=== PATIENT | male | born 1995 | race Caucasian/White ===

== ENCOUNTER 2020-05-22 00:43 | Inpatient (IN) | payer OTHER ==
[~2020-05-22] VITALS: Ht 193 cm; Wt 100.8 kg
[2020-05-22] VITALS (13 sets, daily range): BP systolic 103–148; BP diastolic 24–81
[2020-05-22] MEDS: IV NORMAL SALINE 1000ML BAG 1,000 ML IV SCH ×3 (01:51→17:54)
[2020-05-22] MEDS: ONDANSETRON PF 4 MG/2 ML VIAL. IV PRN ×3 (01:54→23:09)
[2020-05-22] MEDS: MORPHINE SULFATE 4 MG/ML VIAL. IV PRN ×5 (01:55→23:09)
--- NOTE | 2020-05-22 04:01 | NUR ---
Direct Admit from [facility]. Patient arrived to unit at approx 0040 accompanied by EMS. Complaints of 7/10 abd pain with some nausea. No vomiting. Patient is a student at [employer] and reports traveling to [place] for a swim meet states "the swim meet was well organized and social distancing was followed". Pt states that they are frequently tested for COVID for practices, no signs and symptoms noted. VS stable, Assessment complete. Reminded patient to call for assistance before ambulating. Call light in reach, bed in low locked position, will continue to monitor.
--- NOTE | 2020-05-22 07:19 | HP ---
ADMIT DATE: 05/22/2020 HISTORY OF PRESENT ILLNESS: The patient is a 24-year-old male patient originally from [facility], who is studying for [employer] here and who apparently started complaining of abdominal pain that started last Wednesday after drinking alcohol in [place] and excessive amount of [employer], reported generalized abdominal pain over the last 48 hours migrated towards his right lower quadrant area. However, he denied any fever. He has no known COVID-19 contacts and no other concerning symptoms, but does admit that the pain is now mostly in his right lower quadrant. He was evaluated in the Emergency Room of [facility]. His lab works were essentially unremarkable; however, CT scan of the abdomen and pelvis showed the patient has finding consistent with acute appendicitis with no evidence of perforation or adjacent abscess and therefore, he was transferred to [facility] to consult the surgical team for definitive surgical treatment. He was kept n.p.o., started on IV fluid and IV pain medication, antiemetic. PAST MEDICAL HISTORY: Unremarkable except for styes in both eyes. PAST SURGICAL HISTORY: Remarkable for surgery on his right shoulder. FAMILY HISTORY: Unremarkable. SOCIAL HISTORY: He is currently a student. He does not smoke. He drinks alcohol occasionally. Does not use any drugs. ALLERGIES: He has no known drug allergies. MEDICATIONS: He is currently on no medication by prescription or [id number]. REVIEW OF SYSTEMS: As per history of present illness. PHYSICAL EXAMINATION: GENERAL: On arrival to the Emergency Room, he looked well and was clearly in no apparent respiratory distress. No pallor, jaundice, cyanosis or thyromegaly. No jugular venous distention. No limb edema. VITAL SIGNS: His heart rate was 74, blood pressure was 136/73, temperature 98.7, respiratory rate was 16, and oxygen saturation was 97%. HEAD, EYES, EARS, NOSE AND THROAT: Normocephalic, atraumatic. NECK: Supple. CARDIAC: Normal first and second heart sounds. No gallop or murmur. CHEST: Shows central trachea, equal bilateral expansion, air entry vesicular sounds. No crepitation or rhonchi. ABDOMEN: Scaphoid, generally soft except marked tenderness in the right lower quadrant. NEUROLOGIC: He was grossly intact. LABORATORY DATA: Showed a white cell count of 8800, hemoglobin 15.5, hematocrit was 46.6, MCV 89 and platelet count 228,000. His chemistry showed a serum sodium 139, potassium 4, chloride 101, bicarbonate 27, anion gap of 11, BUN 13, creatinine 1.2, estimated GFR was 75 mL per minute. His glucose was 88, calcium was 10.5. Total bilirubin is 1.2. AST, ALT, alkaline phosphatase were normal. Total protein 8.4, albumin was 4.5. The CT scan of the abdomen and pelvis showed the heart size is normal, no pericardial effusion. Visualized lung bases are clear, no pleural effusion. Liver, spleen, pancreas, gallbladder and adrenals are unremarkable. No renal or ureteral calculi. Kidneys demonstrate symmetric enhancement. No hydronephrosis or perinephric stranding. Bladder is partially distended, is not well evaluated. Prostate is not enlarged, scattered diverticulosis noted in the sigmoid colon without evidence of acute diverticulitis. Remainder of the large and small bowel are unremarkable. Appendix is dilated with mild adjacent fat stranding. Appendicolith is noted at the base of the appendix. Abdominal aorta has a normal course and caliber. Abdominal vasculature is patent. No enlarged intraabdominal lymph nodes are identified. No suspicious osseous lesion or acute fracture. IMPRESSION: Finding of acute appendicitis with no evidence of perforation or adjacent abscess. PLAN: To keep the patient n.p.o., continue with IV fluid, IV pain medication, antiemetic and consult the surgical team for definitive surgical treatment. MARNIE DIAZ MD DR: ZIGGY/giovani JOB#: [id number] / [id number]
[2020-05-22] MEDS ORDERED: BUPIVACAINE-EPI 0.5%-1:200000 MPF 30 ML VIAL. INJ ONE (07:30)
[2020-05-22] MEDS: cefTRIAXone IV Push 1 GM VIAL. IVP SCH (08:39)
[2020-05-22 09:12] LABS: BASO % 1 % (0-3); EOS # 0.1 x10^3/uL (0.0-0.7); EOS % 1 % (0-3); HEMATOCRIT 40.4 % (39.0-53.0); HEMOGLOBIN 14.2 g/dL (13.0-17.5); LYMPH # 2.5 x10^3/uL (1.0-4.8); LYMPH % 42 % (24-48); MEAN CORPUSCULAR HEMOGLOBIN 30 pg (25-35); MEAN CORPUSCULAR HGB CONC 35 g/dL (31-37); MEAN CORPUSCULAR VOLUME 85 fL (79-100); MONO # 0.6 x10^3/uL (0.0-1.1); MONO % 10 % (0-9); NEUT # 2.8 x10^3/uL (1.8-7.7); NEUT % 47 % (31-73); PLATELET COUNT 190 x10^3/uL (140-400); RED BLOOD COUNT 4.77 x10^6/uL (4.30-5.70); RED CELL DISTRIBUTION WIDTH 12.4 % (11.5-14.5)
[2020-05-22 09:28] LABS: ALBUMIN 3.7 g/dL (3.4-5.0); ALBUMIN/GLOBULIN RATIO 1.2 (1.0-1.7); CREATININE 1.1 mg/dL (0.7-1.3); POTASSIUM 4.1 mmol/L (3.5-5.1); TOTAL BILIRUBIN 1.6 mg/dL (0.2-1.0); TOTAL PROTEIN 6.9 g/dL (6.4-8.2)
--- NOTE | 2020-05-22 13:24 | NUR ---
SS following for discharge planning. SS reviewed pt chart and discussed with pt RN. Pt is from home and is currently on room air. Self pay. COVID19 negative. Pt on IV Rocephin and IV Flagyl. Pt having surgery today. SS will continue to follow for discharge planning.
[2020-05-22] MEDS ORDERED: SEVOFLURANE 61 TO 120 MINUTES. IH ONE (15:58)
[2020-05-22] MEDS ORDERED: GLYCOPYRROLATE 1 MG/5 ML VIAL. ONE (15:58)
[2020-05-22] MEDS ORDERED: SUCCINYLCHOLINE 200 MG/10 ML VIAL. ONE (15:59)
[2020-05-22] MEDS ORDERED: MIDAZOLAM HCL/PF 2 MG/2 ML VIAL. ONE (15:59)
[2020-05-22] MEDS ORDERED: fentaNYL PF VIAL 100 MCG/2 ML VIAL ONE (15:59)
[2020-05-22] MEDS ORDERED: ROCURONIUM 50 MG/5 ML VIAL. ONE (15:59)
[2020-05-22] MEDS ORDERED: KETOROLAC 30 MG/ML VIAL. ONE ×2 (15:59)
[2020-05-22] MEDS ORDERED: NEOSTIGMINE METHYLSULFATE 5 MG/5 ML SYRINGE. ONE (15:59)
[2020-05-22] MEDS ORDERED: DEXAMETHASONE SOD PHOS 4 MG/ML VIAL ONE (16:00)
[2020-05-22] MEDS ORDERED: PROPOFOL 10 MG/ML (20ML) VIAL. IV ONE (16:00)
[2020-05-22] MEDS ORDERED: LIDOCAINE 2% PF 5 ML VIAL. ONE (16:00)
[2020-05-22] MEDS ORDERED: ONDANSETRON PF 4 MG/2 ML VIAL. ONE (16:00)
--- NOTE | 2020-05-22 16:06 | PDOC2 ---
CONSULT Date of Consult Date of Consult DATE: 05/22/20 TIME: 16:00 Reason for Consult Reason for Consult: Abdominal pain Referring Physician Referring Physician: Eben Identification/Chief Complaint Chief Complaint Abdominal pain Source Source: Chart review, Patient History of Present Illness Reason for Visit: 24-year-old male with 48-hour history of right lower quadrant abdominal pain nausea no vomiting. Came to [facility] emergency department for further evaluation CT scan was done at that time which shows a dilated inflamed appendix consistent with acute appendicitis no evidence of perforation or phlegmon or abscess Past Medical History Cardiovascular: No pertinent hx Pulmonary: No pertinent hx GI: No pertinent hx Heme/Onc: No pertinent hx Hepatobiliary: No pertinent hx Psych: No pertinent hx Rheumatologic: No pertinent hx Infectious disease: No pertinent hx ENT: No pertinent hx Renal/: No pertinent hx Endocrine: No pertinent hx Dermatology: No pertinent hx Past Surgical History Past Surgical History: Other (Right shoulder surgery) Family History Family History: No Significant Social History No ALCOHOL: social Drugs: None Lives: Alone Current Medications Current Medications Current Medications Sodium Chloride 1,000 ml @ 100 mls/hr Q10H IV Last administered on 05/22/20at 11:29; Start 05/22/20 at 01:45 Ondansetron HCl (Zofran) 4 mg PRN Q4HRS PRN IV NAUSEA/VOMITING Last administered on 05/22/20at 01:54; Start 05/22/20 at 01:45 Morphine Sulfate (Morphine Sulfate) 4 mg PRN Q4HRS PRN IV PAIN Last administered on 05/22/20at 13:18; Start 05/22/20 at 01:45 Ceftriaxone Sodium (Rocephin) 1 gm Q24H IVP Last administered on 05/22/20at 08:39; Start 05/22/20 at 07:00 Metronidazole 100 ml @ 100 mls/hr Q12HR IV Last administered on 05/22/20at 11:29; Start 05/22/20 at 09:00 Bupivacaine HCl/ Epinephrine Bitart (Sensorcain-Epi 0.5%-1:115491 Mpf) 30 ml 1X ONCE INJ ; Start 05/22/20 at 07:30; Stop 05/22/20 at 07:31; Status DC Glycopyrrolate (Robinul) 1 mg STK-MED ONCE .ROUTE ; Start 05/22/20 at 15:58; Stop 05/22/20 at 15:59; Status DC Sevoflurane (Ultane) 60 ml STK-MED ONCE IH ; Start 05/22/20 at 15:58; Stop 05/22/20 at 15:59; Status DC Succinylcholine Chloride (Anectine) 200 mg STK-MED ONCE .ROUTE ; Start 05/22/20 at 15:59; Stop 05/22/20 at 15:59; Status DC Rocuronium [place] (Zemuron) 50 mg STK-MED ONCE .ROUTE ; Start 05/22/20 at 15:59; Stop 05/22/20 at 15:59; Status DC Fentanyl Citrate (Fentanyl 2ml Vial) 100 mcg STK-MED ONCE .ROUTE ; Start at 15:59; Stop 05/22/20 at 15:59; Status DC Neostigmine [place] (Neostigmine Methylsulfate) 5 mg STK-MED ONCE .ROUTE ; Start 05/22/20 at 15:59; Stop 05/22/20 at 15:59; Status DC Midazolam HCl (Versed) 2 mg STK-MED ONCE .ROUTE ; Start 05/22/20 at 15:59; Stop 05/22/20 at 15:59; Status DC Ketorolac Tromethamine (Toradol 30mg Vial) 30 mg STK-MED ONCE .ROUTE ; Start 05/22/20 at 15:59; Stop 05/22/20 at 16:00; Status DC Ketorolac Tromethamine (Toradol 30mg Vial) 30 mg STK-MED ONCE .ROUTE ; Start 05/22/20 at 15:59; Stop 05/22/20 at 16:00; Status DC Lidocaine HCl (Lidocaine Pf 2% Vial) 5 ml STK-MED ONCE .ROUTE ; Start 05/22/20 at 16:00; Stop 05/22/20 at 16:00; Status DC Propofol (Diprivan) 200 mg STK-MED ONCE IV ; Start 05/22/20 at 16:00; Stop 05/22/20 at 16:00; Status DC Dexamethasone Sodium Phosphate (Decadron) 4 mg STK-MED ONCE .ROUTE ; Start 05/22/20 at 16:00; Stop 05/22/20 at 16:00; Status DC Ondansetron HCl (Zofran) 4 mg STK-MED ONCE .ROUTE ; Start 05/22/20 at 16:00; Stop 05/22/20 at 16:00; Status DC Active Scripts Active Reported No Known Medications Prior To Admisstion (Info) Each 1 Each 1X Allergies Allergies: Coded Allergies: No Known Drug Allergies (Unverified , 05/22/20) ROS Gastrointestinal: Yes Nausea, Yes Abdominal Pain Physical Exam General: Alert, Oriented X3, Cooperative, mild distress HEENT: Other (Right eye inflammation of the lid) Lungs: Clear to auscultation, Normal air movement Heart: Regular rate, No murmurs Abdomen: Normal bowel sounds, Soft, Other (Tender palpation right lower quadrant) Extremities: No edema Skin: No significant lesion Neuro: Normal speech Psych/Mental Status: Mental status NL Vitals VITALS Vital Signs Date Time Temp Pulse Resp B/P (MAP) Pulse Ox O2 Delivery O2 Flow Rate FiO2 05/22/20 15:55 98.0 51 16 121/57 96 Room Air 98.0 Labs Labs Laboratory Tests Test 05/22/20 06:30 05/22/20 08:55 SARS-CoV-2 Antigen (Rapid) Negative (NEGATIVE) White Blood Count 6.0 x10^3/uL (4.0-11.0) Red Blood Count 4.77 x10^6/uL (4.30-5.70) Hemoglobin 14.2 g/dL (13.0-17.5) Hematocrit 40.4 % (39.0-53.0) Mean Corpuscular Volume 85 fL (79-100) Mean Corpuscular Hemoglobin 30 pg (25-35) Mean Corpuscular Hemoglobin Concent 35 g/dL (31-37) Red Cell Distribution Width 12.4 % (11.5-14.5) Platelet Count 190 x10^3/uL (140-400) Neutrophils (%) (Auto) 47 % (31-73) Lymphocytes (%) (Auto) 42 % (24-48) Monocytes (%) (Auto) 10 % (0-9) Eosinophils (%) (Auto) 1 % (0-3) Basophils (%) (Auto) 1 % (0-3) Neutrophils # (Auto) 2.8 x10^3/uL (1.8-7.7) Lymphocytes # (Auto) 2.5 x10^3/uL (1.0-4.8) Monocytes # (Auto) 0.6 x10^3/uL (0.0-1.1) Eosinophils # (Auto) 0.1 x10^3/uL (0.0-0.7) Basophils # (Auto) 0.0 x10^3/uL (0.0-0.2) Sodium Level 141 mmol/L (136-145) Potassium Level 4.1 mmol/L (3.5-5.1) Chloride Level 103 mmol/L (98-107) Carbon Dioxide Level 28 mmol/L (21-32) Anion Gap 10 (6-14) Blood Urea Nitrogen 15 mg/dL (8-26) Creatinine 1.1 mg/dL (0.7-1.3) Estimated GFR (Cockcroft-Gault) 83.0 BUN/Creatinine Ratio 14 (6-20) Glucose Level 81 mg/dL (70-99) Calcium Level 9.0 mg/dL (8.5-10.1) Total Bilirubin 1.6 mg/dL (0.2-1.0) Aspartate Amino Transf (AST/SGOT) 15 U/L (15-37) Alanine Aminotransferase (ALT/SGPT) 28 U/L (16-63) Alkaline Phosphatase 70 U/L (46-116) Total Protein 6.9 g/dL (6.4-8.2) Albumin 3.7 g/dL (3.4-5.0) Albumin/Globulin Ratio 1.2 (1.0-1.7) Laboratory Tests Test 05/22/20 06:30 05/22/20 08:55 SARS-CoV-2 Antigen (Rapid) Negative (NEGATIVE) White Blood Count 6.0 x10^3/uL (4.0-11.0) Red Blood Count 4.77 x10^6/uL (4.30-5.70) Hemoglobin 14.2 g/dL (13.0-17.5) Hematocrit 40.4 % (39.0-53.0) Mean Corpuscular Volume 85 fL (79-100) Mean Corpuscular Hemoglobin 30 pg (25-35) Mean Corpuscular Hemoglobin Concent 35 g/dL (31-37) Red Cell Distribution Width 12.4 % (11.5-14.5) Platelet Count 190 x10^3/uL (140-400) Neutrophils (%) (Auto) 47 % (31-73) Lymphocytes (%) (Auto) 42 % (24-48) Monocytes (%) (Auto) 10 % (0-9) Eosinophils (%) (Auto) 1 % (0-3) Basophils (%) (Auto) 1 % (0-3) Neutrophils # (Auto) 2.8 x10^3/uL (1.8-7.7) Lymphocytes # (Auto) 2.5 x10^3/uL (1.0-4.8) Monocytes # (Auto) 0.6 x10^3/uL (0.0-1.1) Eosinophils # (Auto) 0.1 x10^3/uL (0.0-0.7) Basophils # (Auto) 0.0 x10^3/uL (0.0-0.2) Sodium Level 141 mmol/L (136-145) Potassium Level 4.1 mmol/L (3.5-5.1) Chloride Level 103 mmol/L (98-107) Carbon Dioxide Level 28 mmol/L (21-32) Anion Gap 10 (6-14) Blood Urea Nitrogen 15 mg/dL (8-26) Creatinine 1.1 mg/dL (0.7-1.3) Estimated GFR (Cockcroft-Gault) 83.0 BUN/Creatinine Ratio 14 (6-20) Glucose Level 81 mg/dL (70-99) Calcium Level 9.0 mg/dL (8.5-10.1) Total Bilirubin 1.6 mg/dL (0.2-1.0) Aspartate Amino Transf (AST/SGOT) 15 U/L (15-37) Alanine Aminotransferase (ALT/SGPT) 28 U/L (16-63) Alkaline Phosphatase 70 U/L (46-116) Total Protein 6.9 g/dL (6.4-8.2) Albumin 3.7 g/dL (3.4-5.0) Albumin/Globulin Ratio 1.2 (1.0-1.7) Images Images As in the history of present illness Assessment/Plan Assessment/Plan Acute appendicitis plan laparoscopic appendectomy SHERRI LOWE MD May 22, 2020 16:06
[2020-05-22] MEDS ORDERED: oxyCODONE/APAP 5/325 1 TAB TABLET PO PRN (17:30)
--- NOTE | 2020-05-22 17:30 | PDOC4 ---
Operative Note Operative Note Preoperative Diagnosis: Acute Appendicitis Postoperative Diagnosis: Same Procedure: Laparoscopic appendectomy Surgeon: Ye Legal Administrative Secretary: Aristides Anderson Anesthesia: Gen. EBL: 10 mL Specimen: Appendix to pathology Drains: None Complications: None Indication: The patient is a 24-year-old male who reported to the emergency department with abdominal pain. The evaluation is consistent with acute appendicitis. The patient was offered surgical treatment with a laparoscopic appendectomy. The risks of surgery were discussed which include bleeding, infection, visceral injury, pain, anesthetic risk, potential need for additional surgery or procedure. The patient understands and would like to proceed. Description: The patient was taken to the operating room and placed supine on the operating table. Gen. anesthesia was performed. The abdomen was prepped with ChloraPrep and draped in a standard surgical manner. A supraumbilical incision was made through which a veress needle was inserted and a pneumoperitoneum was created. A visualized 5 mm trocar was inserted and the laparoscope was introduced. In the left lower quadrant a 5 mm trocar was inserted. In the suprapubic region a 12 mm trocar was inserted. The appendix was identified and appeared inflamed consistent with acute appendicitis. There was no clear evidence of perforation or periappendiceal abscess. The mesoappendix was bluntly from the appendix. The mesoappendix was controlled using several clips and it was divided. The appendix was then amputated off the cecum using an Endo CHAD 45 stapling device. The appendix was then placed in an endoscopic bag and extracted at the suprapubic incision site. The fascia there was closed with 0 Vicryl and infiltrated with half percent Marcaine with epinephrine. The RLQ was visualized and the staple line appeared well intact and hemostasis was good. No other abnormalities were identified grossly. The remaining ports were removed and the pneumoperitoneum was relieved. The skin at all incision sites was closed with 4-0 Monocryl. Steri-Strips and dressings were applied. The patient tolerated the procedure well and was sent to the recovery room in stable condition. At the end of the case all counts were correct. JOAN RODRIGUEZ MD May 22, 2020 17:30
[2020-05-22] MEDS ORDERED: fentaNYL PF VIAL 100 MCG/2 ML VIAL IV PRN (17:45)
[2020-05-22] MEDS ORDERED: PROCHLORPERAZINE 10 MG/2 ML VIAL. IV PRN (17:45)
[2020-05-22] MEDS ORDERED: MORPHINE SULFATE 2 MG/ML VIAL. IV PRN (17:45)
[2020-05-22] MEDS ORDERED: HYDROmorphone 2 MG/ML VIAL IV PRN (17:45)
[2020-05-22] MEDS: fentaNYL PF VIAL 100 MCG/2 ML VIAL IV PRN ×2 (17:53→18:00)
[2020-05-23] MEDS: oxyCODONE/APAP 5/325 1 TAB TABLET PO PRN ×5 (02:06→22:29)
[2020-05-23 02:50] VITALS: BP 123/47
--- NOTE | 2020-05-23 05:37 | NUR ---
no urine output since pt has been back from surgery. Bladder scan = 750. Spoke with Dr. Belcher at 0500, ordered to straight cath if patient is unable to urinate. Patient states that it perry when trying to urinate but was able to have 600 out. Will continue to monitor. Addendum: 05/23/20 at 0540 by MIN TORIBIO RN RN no intervention needed at this time
[2020-05-23] MEDS: cefTRIAXone IV Push 1 GM VIAL. IVP SCH (06:42)
[2020-05-23] MEDS: IV NORMAL SALINE 1000ML BAG 1,000 ML IV SCH ×2 (06:59→18:21)
[2020-05-23 07:00] VITALS: BP 130/60
[2020-05-23] MEDS: ONDANSETRON PF 4 MG/2 ML VIAL. IV PRN (10:10)
[2020-05-23] MEDS: MORPHINE SULFATE 4 MG/ML VIAL. IV PRN ×3 (10:17→20:46)
[2020-05-23 11:00] VITALS: BP 116/55
--- NOTE | 2020-05-23 11:14 | PN ---
DATE: 05/23/2020 SUBJECTIVE: The patient is resting, slightly propped up in bed, continued to complain of severe pain in his right flank area that comes and goes. The pain is severe. However, by the time I saw him, he had received already pain medication. Did have some nausea, but no vomiting. He underwent laparoscopic appendectomy successfully yesterday and has been tolerating his diet. PHYSICAL EXAMINATION: GENERAL: When I saw him sat this morning, he looked well and was clearly in no apparent respiratory distress. No pallor, jaundice, cyanosis or thyromegaly. No jugular venous distention or limb edema. VITAL SIGNS: His heart rate was 56, blood pressure was 130/60, temperature was 98, respiratory rate was 19 and oxygen saturation was 99% on room air. HEAD, EYES, EARS, NOSE AND THROAT: Showed normocephalic, atraumatic. NECK: Supple. HEART: Showed normal first and second heart sounds. No gallop or murmur. CHEST: Clear to auscultation. No crepitation or rhonchi. ABDOMEN: Distended, soft, nontender. No guarding or rigidity. No organomegaly. Bowel sounds normal. NEUROLOGIC: He is awake, alert, responding appropriately. All cranial nerves are intact. He moves extremities without difficulty. LABORATORY DATA: His lab work this morning are still pending at the time of this dictation. His lab work yesterday showed his bilirubin was slightly elevated; however, his AST, ALT, alkaline phosphatase were normal, which could be because he was fasting as a form of Gilbert's syndrome. PLAN: My plan is to repeat all his lab works again this morning and we will order a repeat CT scan or ultrasound to elucidate this further, although the CT scan of the abdomen and pelvis done at [facility] did not show any evidence of acute cholecystitis or cholelithiasis. No evidence of nephrolithiasis. MARNIE DIAZ MD DR: ZIGGY/giovani JOB#: [id number] / [id number]
--- NOTE | 2020-05-23 13:01 | NUR ---
SS following up with discharge planning. SS reviewed pt chart and discussed with pt RN. Pt is currently on room air. Pt had surgery on 05/22/2020. Pt on IV Rocephin. Self pay. Discharge plan is to home when medically stable. SS will continue to follow for discharge planning.
[2020-05-23 13:12] LABS: CALCIUM 8.7 mg/dL (8.5-10.1); GFR 92.6
[2020-05-23 13:18] LABS: ALBUMIN 3.4 g/dL (3.4-5.0); ALBUMIN/GLOBULIN RATIO 1.2 (1.0-1.7); TOTAL BILIRUBIN 0.5 mg/dL (0.2-1.0); TOTAL PROTEIN 6.3 g/dL (6.4-8.2)
--- NOTE | 2020-05-23 14:37 | PDOC ---
LUISITO LIZ [employer]LECT[employer]INUITY TESTER 05/23/20 1437: SURGICAL PROGRESS NOTE DATE: 05/23/20 TIME: 14:35 Subjective low back pain Right flank area some improvement after surgery no n/v Vital Signs Vital Signs Date Time Temp Pulse Resp B/P (MAP) Pulse Ox O2 Delivery O2 Flow Rate FiO2 05/23/20 12:28 16 Room Air 05/23/20 11:00 98.0 70 116/55 (75) 98 98.0 05/22/20 18:05 10 I&O Intake and Output 05/23/20 07:00 Intake Total 1620 ml Output Total 1710 ml Balance -90 ml Intake Oral 420 ml IV Total 1200 ml Output Urine Total 1700 ml Estimated Blood Loss 10 ml General: Alert, Oriented X3, Cooperative Abdomen: Soft, Other (lap sites dry) Labs Laboratory Tests Test 05/22/20 06:30 05/22/20 08:55 05/23/20 12:25 SARS-CoV-2 Antigen (Rapid) Negative (NEGATIVE) White Blood Count 6.0 x10^3/uL (4.0-11.0) Red Blood Count 4.77 x10^6/uL (4.30-5.70) Hemoglobin 14.2 g/dL (13.0-17.5) Hematocrit 40.4 % (39.0-53.0) Mean Corpuscular Volume 85 fL (79-100) Mean Corpuscular Hemoglobin 30 pg (25-35) Mean Corpuscular Hemoglobin Concent 35 g/dL (31-37) Red Cell Distribution Width 12.4 % (11.5-14.5) Platelet Count 190 x10^3/uL (140-400) Neutrophils (%) (Auto) 47 % (31-73) Lymphocytes (%) (Auto) 42 % (24-48) Monocytes (%) (Auto) 10 % (0-9) Eosinophils (%) (Auto) 1 % (0-3) Basophils (%) (Auto) 1 % (0-3) Neutrophils # (Auto) 2.8 x10^3/uL (1.8-7.7) Lymphocytes # (Auto) 2.5 x10^3/uL (1.0-4.8) Monocytes # (Auto) 0.6 x10^3/uL (0.0-1.1) Eosinophils # (Auto) 0.1 x10^3/uL (0.0-0.7) Basophils # (Auto) 0.0 x10^3/uL (0.0-0.2) Sodium Level 141 mmol/L (136-145) 140 mmol/L (136-145) Potassium Level 4.1 mmol/L (3.5-5.1) 4.0 mmol/L (3.5-5.1) Chloride Level 103 mmol/L (98-107) 104 mmol/L (98-107) Carbon Dioxide Level 28 mmol/L (21-32) 25 mmol/L (21-32) Anion Gap 10 (6-14) 11 (6-14) Blood Urea Nitrogen 15 mg/dL (8-26) 17 mg/dL (8-26) Creatinine 1.1 mg/dL (0.7-1.3) 1.0 mg/dL (0.7-1.3) Estimated GFR (Cockcroft-Gault) 83.0 92.6 BUN/Creatinine Ratio 14 (6-20) 17 (6-20) Glucose Level 81 mg/dL (70-99) 92 mg/dL (70-99) Calcium Level 9.0 mg/dL (8.5-10.1) 8.7 mg/dL (8.5-10.1) Total Bilirubin 1.6 mg/dL (0.2-1.0) 0.5 mg/dL (0.2-1.0) Aspartate Amino Transf (AST/SGOT) 15 U/L (15-37) 19 U/L (15-37) Alanine Aminotransferase (ALT/SGPT) 28 U/L (16-63) 24 U/L (16-63) Alkaline Phosphatase 70 U/L (46-116) 64 U/L (46-116) Total Protein 6.9 g/dL (6.4-8.2) 6.3 g/dL (6.4-8.2) Albumin 3.7 g/dL (3.4-5.0) 3.4 g/dL (3.4-5.0) Albumin/Globulin Ratio 1.2 (1.0-1.7) 1.2 (1.0-1.7) Laboratory Tests Test 05/23/20 12:25 Sodium Level 140 mmol/L (136-145) Potassium Level 4.0 mmol/L (3.5-5.1) Chloride Level 104 mmol/L (98-107) Carbon Dioxide Level 25 mmol/L (21-32) Anion Gap 11 (6-14) Blood Urea Nitrogen 17 mg/dL (8-26) Creatinine 1.0 mg/dL (0.7-1.3) Estimated GFR (Cockcroft-Gault) 92.6 BUN/Creatinine Ratio 17 (6-20) Glucose Level 92 mg/dL (70-99) Calcium Level 8.7 mg/dL (8.5-10.1) Total Bilirubin 0.5 mg/dL (0.2-1.0) Aspartate Amino Transf (AST/SGOT) 19 U/L (15-37) Alanine Aminotransferase (ALT/SGPT) 24 U/L (16-63) Alkaline Phosphatase 64 U/L (46-116) Total Protein 6.3 g/dL (6.4-8.2) Albumin 3.4 g/dL (3.4-5.0) Albumin/Globulin Ratio 1.2 (1.0-1.7) Assessment/Plan s/p appy stable surgically noted plans per Primary no additional surgical plans Justicifation of Admission Dx: Justifications for Admission: Justification of Admission Dx: Yes Comments: appendicitis JOAN RODRIGUEZ MD 05/24/20 0709: SURGICAL PROGRESS NOTE Assessment/Plan agree with above LUISITO LIZ [employer]LECT[employer] TE[employer] May 23, 2020 14:37 JOAN RODRIGUEZ MD May 24, 2020 07:09
[2020-05-23 15:00] VITALS: BP 122/55
[2020-05-23 19:00] VITALS: BP 103/61
[2020-05-23] MEDS: LACTOBACILLUS RHAMNOSUS GG 1 CAPSULE. PO SCH (20:42)
[2020-05-23 22:39] VITALS: BP 108/56
[2020-05-24 02:34] VITALS: BP 118/49
[2020-05-24] MEDS: cefTRIAXone IV Push 1 GM VIAL. IVP SCH (06:05)
[2020-05-24] MEDS: IV NORMAL SALINE 1000ML BAG 1,000 ML IV SCH (06:06)
[2020-05-24] MEDS: MORPHINE SULFATE 4 MG/ML VIAL. IV PRN (06:15)
[2020-05-24 07:00] VITALS: BP 125/56
[2020-05-24 07:00] LABS: HEMATOCRIT 38.5 % (39.0-53.0); HEMOGLOBIN 13.6 g/dL (13.0-17.5); RED BLOOD COUNT 4.6 x10^6/uL (4.30-5.70); RED CELL DISTRIBUTION WIDTH 12.4 % (11.5-14.5)
[2020-05-24] MEDS ORDERED: IOHEXOL 300 MG/ML 100ML VIAL. IV ONE (09:00)
[2020-05-24] MEDS ORDERED: CONTRAST GIVEN. MC PRN (09:00)
[2020-05-24] MEDS: LACTOBACILLUS RHAMNOSUS GG 1 CAPSULE. PO SCH (09:22)
[2020-05-24] MEDS: oxyCODONE/APAP 5/325 1 TAB TABLET PO PRN (09:22)
--- NOTE | 2020-05-24 09:57 | RAD ---
Exam: CT abdomen/pelvis with intravenous contrast Indication: Right flank pain, appendectomy postop 05/21/2020 Comparison: CT abdomen and pelvis 05/21/2020 Technique: Helical CT imaging performed of the abdomen and pelvis after the intravenous administration of 75 mL Omnipaque 300 intravenous contrast. Sagittal and coronal reformats were obtained. One or more of the following individualized dose reduction techniques were utilized for this examination: 1. Automated exposure control 2. Adjustment of the mA and/or kV according to patient size 3. Use of iterative reconstruction technique. Findings: Lower chest: Minimal left basilar atelectasis. Liver: The liver is normal in size. No focal lesion. Gallbladder/Biliary Tree: Normal. Pancreas: Normal. Spleen: Normal. Adrenal Glands: Normal. Kidneys/Ureters/Bladder: Kidneys and ureters are normal. Bladder is mildly distended. Reproductive Organs: Prostate gland is normal. Stomach, small bowel, and colon: There are new surgical changes of appendectomy. The stomach, small bowel, and colon are normal. Vasculature: Abdominal aorta and inferior vena cava are normal. Lymph Nodes: Prominent lymph nodes in the right lower quadrant are likely reactive. Peritoneum and retroperitoneum: Scattered pneumoperitoneum is likely postoperative. There is a small amount of fluid at the base of the cecum measuring 1.6 x 1.8 cm and small amount of fluid posterior to the bladder measuring 4.3 x 1.2 cm without discrete wall or rim enhancement. No well-formed or drainable abscess. Bones: No acute osseous abnormality. Miscellaneous: Scattered gas in the abdominal wall related to appendectomy. Impression: New surgical changes of appendectomy. Small amount of pneumoperitoneum and small amount of fluid at the base of the cecum and posterior to the bladder is likely postoperative. There is no drainable abscess at this time. Electronically signed by: Ai Stevens MD (05/24/2020 9:54 AM) [id number]
[2020-05-24 11:00] VITALS: BP 113/55
--- NOTE | 2020-05-24 11:37 | NUR ---
SS following up with discharge planning. SS reviewed pt chart and discussed with pt RN. Pt is currently on room air. Pt on IV Rocephin. Pt had CT of abdomen this morning. Awaiting surgery to sign off at this time. Possible discharge to home later today. SS will continue to follow for discharge planning.
--- NOTE | 2020-05-24 12:29 | PDOC ---
SURGICAL PROGRESS NOTE DATE: 05/24/20 TIME: 12:27 Subjective some improvement in pain still some burning with urination no n/v Vital Signs Vital Signs Date Time Temp Pulse Resp B/P (MAP) Pulse Ox O2 Delivery O2 Flow Rate FiO2 05/24/20 11:00 98.6 66 18 113/55 (74) 99 Room Air 98.6 05/23/20 18:15 10.0 I&O Intake and Output 05/24/20 07:00 Intake Total 1750 ml Output Total 1200 ml Balance 550 ml Intake Oral 650 ml IV Total 1100 ml Output Urine Total 1200 ml General: Alert, Oriented X3, Cooperative Abdomen: Soft, Other (lap dressings dry) Labs Laboratory Tests Test 05/23/20 12:25 05/24/20 06:40 Sodium Level 140 mmol/L (136-145) Potassium Level 4.0 mmol/L (3.5-5.1) Chloride Level 104 mmol/L (98-107) Carbon Dioxide Level 25 mmol/L (21-32) Anion Gap 11 (6-14) Blood Urea Nitrogen 17 mg/dL (8-26) Creatinine 1.0 mg/dL (0.7-1.3) Estimated GFR (Cockcroft-Gault) 92.6 BUN/Creatinine Ratio 17 (6-20) Glucose Level 92 mg/dL (70-99) Calcium Level 8.7 mg/dL (8.5-10.1) Total Bilirubin 0.5 mg/dL (0.2-1.0) Aspartate Amino Transf (AST/SGOT) 19 U/L (15-37) Alanine Aminotransferase (ALT/SGPT) 24 U/L (16-63) Alkaline Phosphatase 64 U/L (46-116) Total Protein 6.3 g/dL (6.4-8.2) Albumin 3.4 g/dL (3.4-5.0) Albumin/Globulin Ratio 1.2 (1.0-1.7) White Blood Count 5.0 x10^3/uL (4.0-11.0) Red Blood Count 4.60 x10^6/uL (4.30-5.70) Hemoglobin 13.6 g/dL (13.0-17.5) Hematocrit 38.5 % (39.0-53.0) Mean Corpuscular Volume 84 fL (79-100) Mean Corpuscular Hemoglobin 30 pg (25-35) Mean Corpuscular Hemoglobin Concent 35 g/dL (31-37) Red Cell Distribution Width 12.4 % (11.5-14.5) Platelet Count 194 x10^3/uL (140-400) Laboratory Tests Test 05/24/20 06:40 White Blood Count 5.0 x10^3/uL (4.0-11.0) Red Blood Count 4.60 x10^6/uL (4.30-5.70) Hemoglobin 13.6 g/dL (13.0-17.5) Hematocrit 38.5 % (39.0-53.0) Mean Corpuscular Volume 84 fL (79-100) Mean Corpuscular Hemoglobin 30 pg (25-35) Mean Corpuscular Hemoglobin Concent 35 g/dL (31-37) Red Cell Distribution Width 12.4 % (11.5-14.5) Platelet Count 194 x10^3/uL (140-400) Assessment/Plan s/p appy as per medicine Fu 2weeks Justicifation of Admission Dx: Justifications for Admission: Justification of Admission Dx: Yes LUISITO LIZ SEARCH STRATEGIST May 24, 2020 12:29
[2020-05-24] MEDS ORDERED: OXYC-325 PO (13:37)
[2020-05-24] MEDS ORDERED: CEFD300C PO (13:38)
[2020-05-24] MEDS ORDERED: METR250T PO (13:38)
--- NOTE | 2020-05-24 14:08 | NUR ---
Discharge Note: XUAN KRISHNAMURTHY [place] Discharge instructions and discharge home medications reviewed with Patient and a copy given. All questions have been answered and understanding verbalized. The following instructions and handouts were given: lap appy care after, Percocet, cefdinir, Flagyl Discontinued lines and drains: Peripheral IV intact. Patient discharged to Home or Self Care with Significant Other via Ambulated
[2020-05-25] MEDS ORDERED: DOCUSATE SODIUM 100 MG CAPSULE. PO SCH (09:00)
== END 2020-05-24 14:05 | disposition home or self-care (01) | DRG 343 ==
LOC: 2 NORTH 00:43
PROVIDERS: ADMIT Internal Medicine; ATTEND Internal Medicine
PROC: 0DTJ4ZZ Resection of Appendix, Percutaneous Endoscopic Approach (ICD-10-PCS; principal; 2020-05-22 14:30)
DX: K35.80 Unspecified acute appendicitis (principal); Z20.828 Contact with and (suspected) exposure to other viral communicable diseases
CPT/HCPCS: 36415; 74177; 80053; 85025; 85027; 87426; A7015; J0330; J0696; J1100; J1885; J2250; J2270; J2405; J2704; J2710; J3010; J3490; J7030; Q9967; G0378; U0003-CS

== ENCOUNTER 2020-06-07 01:16 | Emergency (ER) | payer OTHER ==
[~2020-06-07] VITALS: Ht 185.4 cm; Wt 98.6 kg
[~2020-06-07 01:16] MED LIST: CEFD300C PO; METR250T PO; OXYC-325 PO
--- NOTE | 2020-06-07 01:41 | PHYS DOC ---
Past Medical History Past Medical History: No Pertinent History Past Surgical History: Appendectomy Smoking Status: Never Smoker Drug Use: None General Adult EDM: Chief Complaint: POST-OP PROBLEM HPI: HPI: Patient is a 24 year old male who is approximately 2 weeks status post appendectomy presents with a chief complaint of diarrhea. Patient has had multiple loose stools over the last several days. Her last 4 days also started having a right-sided throbbing headache as well as some muscle cramps in the right leg greater than left. Patient denies any fever, cough, shortness of br eath. Patient states symptoms worse with eating is had couple episodes of vomiting. Patient really does not complain of abdominal pain. Review of Systems: Review of Systems: Constitutional: Denies fever or chills. [] Eyes: Denies change in visual acuity. [] HENT: Denies nasal congestion or sore throat. [] Respiratory: Denies cough or shortness of breath. [] Cardiovascular: Denies chest pain or edema. [] GI: Complains of nausea with 2 episodes of vomiting and diarrhea : Denies dysuria. [] Musculoskeletal: Complains of myalgias Integument: Denies rash. [] Neurologic: Denies headache, focal weakness or sensory changes. [] Endocrine: Denies polyuria or polydipsia. [] Lymphatic: Denies swollen glands. [] Psychiatric: Denies depression or anxiety. [] Heart Score: Risk Factors: Risk Factors: DM, Current or recent (<one month) smoker, HTN, HLP, family history of CAD, obesity. Risk Scores: Score 0 - 3: 2.5% MACE over next 6 weeks - Discharge Home Score 4 - 6: 20.3% MACE over next 6 weeks - Admit for Clinical Observation Score 7 - 10: 72.7% MACE over next 6 weeks - Early Invasive Strategies Current Medications: Current Medications Sodium Chloride 1,000 ml @ 1,000 mls/hr 1X ONCE IV Last administered on 06/07/20at 01:45; Start 06/07/20 at 02:00; Stop 06/07/20 at 02:59 Sodium Chloride 1,000 ml @ 1,000 mls/hr 1X ONCE IV Last administered on 06/07/20at 01:46; Start 06/07/20 at 02:00; Stop 06/07/20 at 02:59 Prochlorperazine Edisylate (Compazine) 10 mg 1X ONCE IV Last administered on 06/07/20at 01:45; Start 06/07/20 at 02:00; Stop 06/07/20 at 02:01; Status DC Active Scripts Active Flagyl (Metronidazole) 250 Mg Tablet 1 Tab PO TID 7 Days Cefdinir 300 Mg Capsule 1 Cap PO BID Percocet 5-325 mg Tablet (Oxycodone HCl/Acetaminophen) 1 Each Tablet 1 Tab PO QIDPRN PRN MDD 4 Tablet(s) 5 Days Allergies: Allergies: Allergies Coded Allergies Type Severity Reaction Last Updated Verified No Known Drug Allergies 05/22/20 No Physical Exam: PE: Constitutional: Well developed, well nourished, no acute distress, non-toxic appearance. [] HENT: Normocephalic, atraumatic, bilateral external ears normal, no trismus nose normal. [] Eyes: PERRLA, EOMI, conjunctiva normal, no discharge. [] Neck: Normal range of motion, no tenderness, supple, no stridor. [] No meningeal signs Cardiovascular:Heart rate regular rhythm, peripheral pulses are intact cap refill is brisk Lungs & Thorax: Bilateral breath sounds clear, no respiratory distress Abdomen: Surgical incisions are clean dry and intact without signs of infection. No dehiscence. Abdomen is soft and nontender without guarding or rebound Skin: Warm, dry, no erythema, no rash. [] Back: No tenderness, no CVA tenderness. [] Extremities: No tenderness, no cyanosis, no clubbing, ROM intact, no edema. [] Neurologic: Alert and oriented X 3, normal motor function, normal sensory function, no focal deficits noted. [] Psychologic: Affect normal, judgement normal, mood normal. [] Current Patient Data: Labs: Laboratory Tests Test 06/07/20 01:40 White Blood Count 6.9 x10^3/uL Red Blood Count 4.99 x10^6/uL Hemoglobin 14.7 g/dL Hematocrit 41.8 % Mean Corpuscular Volume 84 fL Mean Corpuscular Hemoglobin 29 pg Mean Corpuscular Hemoglobin Concent 35 g/dL Red Cell Distribution Width 12.2 % Platelet Count 251 x10^3/uL Neutrophils (%) (Auto) 61 % Lymphocytes (%) (Auto) 30 % Monocytes (%) (Auto) 8 % Eosinophils (%) (Auto) 0 % Basophils (%) (Auto) 1 % Neutrophils # (Auto) 4.2 x10^3/uL Lymphocytes # (Auto) 2.1 x10^3/uL Monocytes # (Auto) 0.5 x10^3/uL Eosinophils # (Auto) 0.0 x10^3/uL Basophils # (Auto) 0.0 x10^3/uL Sodium Level 140 mmol/L Potassium Level 4.1 mmol/L Chloride Level 101 mmol/L Carbon Dioxide Level 27 mmol/L Anion Gap 12 Blood Urea Nitrogen 19 mg/dL Creatinine 1.2 mg/dL Estimated GFR (Cockcroft-Gault) 75.0 BUN/Creatinine Ratio 16 Glucose Level 87 mg/dL Calcium Level 9.2 mg/dL Total Bilirubin 0.8 mg/dL Aspartate Amino Transf (AST/SGOT) 25 U/L Alanine Aminotransferase (ALT/SGPT) 47 U/L Alkaline Phosphatase 81 U/L Total Protein 7.1 g/dL Albumin 4.2 g/dL Albumin/Globulin Ratio 1.4 Lipase 122 U/L Current Medications Medications (Trade) Dose Ordered Sig/Dona Route PRN Reason Start Time Stop Time Status Last Admin Dose Admin Sodium Chloride 1,000 ml @ 1,000 mls/hr 1X ONCE IV 06/07/20 02:00 06/07/20 02:59 06/07/20 01:45 Sodium Chloride 1,000 ml @ 1,000 mls/hr 1X ONCE IV 06/07/20 02:00 06/07/20 02:59 06/07/20 01:46 Prochlorperazine Edisylate (Compazine) 10 mg 1X ONCE IV 06/07/20 02:00 06/07/20 02:01 DC 06/07/20 01:45 Vital Signs: Vital Signs Date Time Temp Pulse Resp B/P (MAP) Pulse Ox O2 Delivery O2 Flow Rate FiO2 06/07/20 01:28 98.6 75 22 140/62 (88) 100 Room Air 98.6 EKG: EKG: [] Radiology/Procedures: Radiology/Procedures: [] Course & Med Decision Making: Course & Med Decision Making Pertinent Labs and Imaging studies reviewed. (See chart for details) [] 24-year-old male with status post appendectomy 2 weeks ago presents with some diarrhea as well as nausea and a headache. Patient's abdominal exam is soft and nontender, doubt surgical emergency. Patient reassessed at 2:30 AM and feels much better. Patient has no meningeal signs and normal neurological exam, doubt meningitis. Most likely the patient is dehydrated from the diarrhea which was caused by the antibiotics from surgery and will just need aggressive hydration. Patient has seen his surgeon a couple days ago and will be instructed to follow back up with them. I do not think he has a surgical emergency at this time. Return precautions given. Bruce Disclaimer: Bruce Disclaimer: This electronic medical record was generated, in whole or in part, using a voice recognition dictation system. Departure Departure Impression: Primary Impression: Headache Additional Impressions: Diarrhea Dehydration Disposition: 01 DC HOME SELF CARE/HOMELESS Condition: STABLE Referrals: NO PCP (PCP) JOAN RODRIGUEZ MD 2-3 DAYS Patient Instructions: Dehydration, Adult, Diarrhea Additional Instructions: EMERGENCY DEPARTMENT GENERAL DISCHARGE INSTRUCTIONS THANK YOU for coming to [facility] Emergency Department (ED) today and trusting us with your care. We trust that you had a positive experience in our Emergency Department. If you wish to speak to the department Management you can contact the measurement department chief clerk at . YOUR FOLLOW UP INSTRUCTIONS ARE FOLLOWS: Do you have a private doctor? If you do not have a private doctor, please ask for a resource list of physicians or clinics that may be able to assist you with follow up care. The Emergency Physician has interpreted your x-rays. The X-ray specialist will also review them. If there is a change in the findings you will be notified in 48 hours when at all possible. A lab test or lab culture may have been done, your results will be reviewed and you will be notified if you need a change in treatment. ADDITIONAL INSTRUCTIONS AND INFORMATION Your care today has been supervised by a physician who is specially trained in emergency care. Many problems require more than one evaluation for a complete diagnosis and treatment. We recommend that you schedule your follow up appointment as recommended to ensure complete treatment of your illness or injury. If you are unable to obtain follow up care and continue to have a problem, or if your condition worsens we recommend that you return to the ED. We are not able to safely determine your condition over the phone nor are we able to give sound medical advice over the phone. For these safety reasons, if you call for medical advice we will ask you to come to the ED for further evaluation If you have any questions regarding these discharge instructions please call the ED at . SAFETY INFORMATION In the interest of safety, wellness, and injury prevention; we encourage you to wear your seatbelt, if you smoke; quit smoking, and we encourage your family to use protective helmet for bicycling and other sporting events that present an increased risk for head injury. IF YOUR SYMPTOMS WORSEN OR NEW SYMPTOMS DEVELOP, OR YOU HAVE CONCERNS ABOUT YOUR CONDITION; OR IF YOUR CONDITION WORSENS WHILE YOU ARE WAITING FOR YOUR FOLLOW UP APPOINTMENT; EITHER CONTACT YOUR PRIMARY CARE DOCTOR, THE PHYSICIAN WHOSE NAME AND NUMBER YOU WERE GIVEN, OR RETURN TO THE ED IMMEDIATELY. Scripts Prochlorperazine Maleate (Compazine) 10 Mg Tablet 1 TAB PO Q6HRS for NAUSEA, HEADACHE for 5 Days, #20 TAB 0 Refills Prov: JOAN MONTGOMERY MD 06/07/20 JOAN MONTGOMERY MD Jun 07, 2020 01:41
[2020-06-07 01:52] LABS: BASO % 1 % (0-3); EOS % 0 % (0-3); HEMATOCRIT 41.8 % (39.0-53.0); HEMOGLOBIN 14.7 g/dL (13.0-17.5); LYMPH # 2.1 x10^3/uL (1.0-4.8); LYMPH % 30 % (24-48); MEAN CORPUSCULAR HEMOGLOBIN 29 pg (25-35); MEAN CORPUSCULAR HGB CONC 35 g/dL (31-37); MEAN CORPUSCULAR VOLUME 84 fL (79-100); MONO # 0.5 x10^3/uL (0.0-1.1); MONO % 8 % (0-9); NEUT # 4.2 x10^3/uL (1.8-7.7); NEUT % 61 % (31-73); PLATELET COUNT 251 x10^3/uL (140-400); RED BLOOD COUNT 4.99 x10^6/uL (4.30-5.70); RED CELL DISTRIBUTION WIDTH 12.2 % (11.5-14.5); WHITE BLOOD COUNT 6.9 x10^3/uL (4.0-11.0)
[2020-06-07 01:57] LABS: CALCIUM 9.2 mg/dL (8.5-10.1); CREATININE 1.2 mg/dL (0.7-1.3); POTASSIUM 4.1 mmol/L (3.5-5.1)
[2020-06-07] MEDS ORDERED: IV NORMAL SALINE 1000ML BAG 1,000 ML IV ONE ×2 (02:00)
[2020-06-07] MEDS ORDERED: PROCHLORPERAZINE 10 MG/2 ML VIAL. IV ONE (02:00)
[2020-06-07 02:03] LABS: ALBUMIN 4.2 g/dL (3.4-5.0); ALBUMIN/GLOBULIN RATIO 1.4 (1.0-1.7); TOTAL BILIRUBIN 0.8 mg/dL (0.2-1.0); TOTAL PROTEIN 7.1 g/dL (6.4-8.2)
[2020-06-07] MEDS ORDERED: PROC10TA57 PO (02:39)
[2020-06-07 03:33] VITALS: BP 123/63
== END 2020-06-07 03:41 | disposition home or self-care (01) ==
LOC: ER 01:16
DX: R19.7 Diarrhea, unspecified (principal); E86.0 Dehydration; R51.9 Headache, unspecified; R11.2 Nausea with vomiting, unspecified; Z90.89 Acquired absence of other organs
CPT/HCPCS: 36415; 80053; 83690; 85025; 96361; 96374; 99283; J0780; J7030